=== PATIENT | female | born 1960 | race Caucasian/White ===

== ENCOUNTER → 2020-09-16 13:20 | Outpatient (CLI) | payer OTHER, SELFPAY ==
[2020-09-16 14:22] LABS: Add Manual Diff / Slide Review NO; Basophils Absolute Auto 0 /uL (0-100); Basophils Percent Auto 0.8 % (0-2); Eosinophils Absolute Auto 100 /uL (0-450); Eosinophils Percent Auto 1.4 % (2-4); Hematocrit 38.5 % (36-46); Hemoglobin 12.5 g/dL (12.0-16.0); Lymphocytes Absolute Auto 2500 /uL (1100-4500); Lymphocytes Percent Auto 43.7 % (25-40); Mean Corpuscular HGB Conc 32.6 % (30-36); Mean Corpuscular Hemoglobin 30.1 PG (26-34); Mean Corpuscular Volume 92.3 fL (80-100); Monocytes Absolute Auto 400 /uL (0-900); Monocytes Percent Auto 6.3 % (3-14); Neutrophils Absolute Auto 2700 /uL (1500-7000); Neutrophils Percent Auto 47.8 % (50-75); Platelet Count 261 X10^3/uL (150-400); Red Blood Cell Count 4.17 X10^6/uL (4.0-5.2); Red Cell Distribution Width 13.1 % (11.6-14.8); White Blood Cell Count 5.7 X10^3/uL (4.5-11.0)
[2020-09-16 15:11] LABS: Free T3, Triiodothyronine Free 3.08 pg/mL (2.77-5.27); Free T4, Direct Thyroxine 0.92 ng/dL (0.78-2.19)
[2020-09-16 15:24] LABS: Thyroid Stimulating Hormone 2.04 uIU/mL (0.47-4.68)
[2020-09-16 15:43] LABS: Alanine Aminotransferase 15 IU/L (<35); Albumin 4.2 g/dL (3.5-5.0); Albumin Globulin Ratio 1.2 (1.0-2.8); Alkaline Phosphatase 80 U/L (38-126); Aspartate Aminotransferase 24 IU/L (14-36); BUN Creatinine Ratio 20.8 (6-22); Bilirubin Total 0.5 mg/dL (0.2-1.3); Blood Urea Nitrogen 11 mg/dL (7-17); Calcium 8.9 mg/dL (8.4-10.2); Carbon Dioxide 29 mmol/L (22-32); Chloride 105 mmol/L (98-107); Cholesterol 195 mg/dL (140-199); Estimated Glomerular Filt Rate > 60.0 mL/min (>60); Globulin 3.4 g/dL (1.7-4.1); Glucose 95 mg/dL (80-110); HDL Cholesterol 61 mg/dL (40-60); HEMOLYSIS < 15 (0-50); LDL Cholesterol Calculated 108 mg/dL (<100); Potassium 3.7 mmol/L (3.4-5.1); Sodium 140 mmol/L (137-145); Total Protein 7.6 g/dL (6.3-8.2); Triglycerides 128 mg/dL (35-150)
[2020-09-17 07:10] LABS: Thyroid Peroxidase Antibodies <9 IU/mL (0-34)
== END ==
PROVIDERS: Referring Provider Naturopath; Visit Provider Naturopath
DX: E03.9 Hypothyroidism, unspecified (principal); Z00.00 Encounter for general adult medical examination without abnormal findings
CPT/HCPCS: 36415; 80053; 80061; 84439; 84443; 84481; 85025; 86376

== ENCOUNTER → 2023-11-02 | Outpatient (CLI) | payer OTHER, SELFPAY ==
--- NOTE | 2023-11-03 02:42 | DI.NM.S_ITS ---
DATE OF SERVICE: 11/02/2023 PROCEDURE: Exercise stress test. INDICATIONS: Hypertension. CARDIAC STRESS: Patient underwent exercise stress test under the supervision of an attending staff. She walked on Henry protocol for 9 minutes and achieved maximum heart rate of 147, which was 94% of target heart rate. Resting blood pressure 135/80 and peak blood pressure 168/85 mmHg. Achieved 10.1 METS of workload and LEV -37%. Baseline rhythm was sinus with evidence of LVH and diffuse ST flattening and T- wave inversion in lead aVL. During stress, there was some nonspecific upsloping ST depression in the inferolateral leads without any significant ischemic changes. No anginal symptoms. No significant sustained arrhythmias seen. CONCLUSION: Exercise stress test did not reveal any significant ischemic changes. Baseline rhythm sinus with LVH. Normal hemodynamic response. Excellent exercise capacity. LEV -37%. No chest pain or significant arrhythmias. Overall, low-risk exercise stress test. 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
== END ==
PROVIDERS: PCP Specialist; Referring Provider Specialist; Visit Provider Specialist
DX: I10 Essential (primary) hypertension (principal); R06.02 Shortness of breath
CPT/HCPCS: 93017

== ENCOUNTER → 2025-06-18 11:22 | Outpatient (CLI) | payer OTHER, BC, MEDICARE, SELFPAY ==
[2025-06-18 12:01] LABS: Appearance Urine UA Clear; Color Urine UA Yellow; Protein Urine UA Negative (Negative); Specific Gravity Urine UA <=1.005 (1.000-1.035); pH Urine UA 6.5 (4.5-8.0)
[2025-06-18 12:02] LABS: Bilirubin Urine UA NEGATIVE (NEGATIVE); Glucose Urine UA NEGATIVE (Negative); Ketones Urine UA NEGATIVE (NEGATIVE); Leukocyte Esterase Urine UA NEGATIVE (NEGATIVE); Nitrite Urine UA NEGATIVE (Negative); Occult Blood Urine UA TRACE-INTACT (Negative); Urobilinogen Urine UA 0.2 E.U./dL (0.2)
[2025-06-18 12:03] LABS: Culture Indicated Urine Cult Not Indicated
== END ==
PROVIDERS: PCP Specialist; Visit Provider Obstetrics & Gynecology Gynecology
DX: N95.1 Menopausal and female climacteric states (principal); Z79.890 Hormone replacement therapy; N81.6 Rectocele
CPT/HCPCS: 81001